=== PATIENT | female | born 1940 | race Caucasian/White ===

== ENCOUNTER 2023-11-22 10:15 | Emergency (ER) | payer MEDICARE, SELFPAY ==
[2023-11-22 10:23] VITALS: BP 116/69
[2023-11-22 10:59] LABS: % Basophils 0.7 % (0-2); % Eosinophils 1.6 % (0-6); % Immature Granulocytes 0.7 % (0-0.5); % Lymphocytes 29.9 % (20.5-51.1); % Monocytes 11.5 % (1.7-9.3); % Neutrophils 55.6 % (42.2-75.2); Absolute Basophils 0.1 10^3/uL (0-0.2); Absolute Eosinophils 0.1 10^3/uL (0-0.7); Absolute Immature Granulocytes 0.1 10^3/uL (0-0.05); Absolute Lymphocytes 2.2 10^3/uL (1.2-3.4); Absolute Monocytes 0.9 10^3/uL (0.1-0.6); Absolute Neutrophils 4.2 10^3/uL (1.4-6.5); Hematocrit 35.7 % (37.0-47.0); Hemoglobin 12.7 g/dL (12.0-16.0); Mean Corp Hgb Conc. 35.6 g/dL (33.0-37.0); Mean Corpuscular Volume 95.5 fL (81.0-99.0); Mean Platelet Volume 8.7 fL (7.4-10.4); Nucleated Red Blood Cells % 0 %; Platelet Count 362 10^3/uL (130-400); Red Blood Cell Count 3.74 10^6/uL (4.20-5.40); Red Cell Dist. Width 12.4 % (11.5-14.5); White Blood Cell Count 7.5 10^3/uL (4.8-10.8)
[2023-11-22 11:07] LABS: ALT (SGPT) 81 U/L (0-35); AST (SGOT) 63 U/L (14-36); Albumin 3.8 g/dl (3.5-5.0); Alkaline Phosphatase 156 U/L (38-126); Blood Urea Nitrogen 4 mg/dl (7-17); Calcium 9.3 mg/dl (8.4-10.2); Carbon Dioxide 28 mmol/L (22-30); Chloride 98 mmol/L (98-107); Glucose 113 mg/dl (70-99); Potassium 4.1 mmol/L (3.5-5.1); Sodium 131 mmol/L (135-145); Total Bilirubin 0.9 mg/dl (0.2-1.3); Total Protein 6.5 g/dl (6.3-8.2); eGFR > 60.00
[2023-11-22 11:18] LABS: Troponin I < 0.012 ng/ml
--- NOTE | 2023-11-22 12:08 | ED.GENMED ---
History of Present Illness
General
Chief Complaint: Breathing Problem
Source: patient
Exam Limitations: none
Time Seen by Provider: 11/22/23 11:14
Travel History
Have you had any contact with someone who has COVID-19?: Yes
Comment: covid+
Do you have any symptoms of coronavirus? Fever > 100 degrees, chills, cough, shortness of breath, sore throat, loss of taste or smell, muscle aches, or headache?: Yes
Symptoms:: covid+
History of Present Illness
History of Present Illness:
83-year-old female recently discharged from hospital for community-acquired pneumonia. Currently on Augmentin. Notes persistent and worsening symptoms since discharge. She was initially tested for COVID upon admission which was negative however
she tested positive yesterday. Onset of COVID was unknown. Patient is on Eliquis. She notes generally she is fatigued and occasionally feels short of breath. She notes a cough was having difficulty producing any sputum with the cough. The
appetite is down. She is also having difficulty swallowing. No chest pain. No abdominal pain.
Past History
Past History
ED Past Medical History: HTN
ED Past Surgical History: Gynecological
Social History
Tobacco: Non-smoker
Alcohol: None
Drug: None
Personal: Single
Employment: Not employed
Phy Exam
Physical Exam
Physical Exam:
General: Well-appearing female no acute respiratory distress
HEENT: Normocephalic atraumatic neck is supple
Heart: Regular rate and rhythm no murmurs
Lungs: Clear to auscultation bilaterally no wheezing
Abdomen: Soft nontender nondistended no guarding or rebound normal bowel
Extremities: No cyanosis or edema
Scores
Heart Failure Risk
Heart Failure Risk Score: Not Applicable
Course
Orders/Labs/Results
Orders:
Orders
11/22/23 10:33
Electrocardiogram (*1) Urgent
Reason for Study: Chest Pain
EKG- Treatment ONCE
11/22/23 10:41
Complete Blood Count/With Diff Urgent
Comprehensive Metabolic Panel Urgent
Troponin I Urgent
11/22/23 11:39
0.9% Sodium Chloride 1000 ml [Nss] 1,000 ml IV BOLUS
CR Chest - 2 Views Urgent
Comment:
Reason For Exam: sob
11/22/23 14:37
Amoxicillin 875 mg/Clav 125 mg [Augmentin 875 mg/125 mg] 1 tablet PO NOW STA
Abnormal Lab Results
11/22/23
10:41
RBC 3.74 L 10^6/uL
(4.20-5.40)
Hct 35.7 L %
(37.0-47.0)
MCH 34.0 H pg
(27.0-31.0)
Abs Immat Gran (auto) 0.1 H 10^3/uL
(0-0.05)
Absolute Monos (auto) 0.9 H 10^3/uL
(0.1-0.6)
Immature Gran % 0.7 H %
(0-0.5)
Monocytes % 11.5 H %
(1.7-9.3)
Sodium 131 L mmol/L
(135-145)
BUN 4 L mg/dl
(7-17)
Creatinine 0.5 L mg/dL
(0.6-1.0)
Glucose 113 H mg/dl
(70-99)
AST 63 H U/L
(14-36)
ALT 81 H U/L
(0-35)
Alkaline Phosphatase 156 H U/L
(38-126)
11/22/23 10:41
11/22/23 10:41
Vital Signs
Initial and Last Documented VS:
Initial Vital Signs
Temp Pulse Resp BP Pulse Ox
98.8 F 104 24 116/69 95
11/22/23 10:23 11/22/23 10:23 11/22/23 10:23 11/22/23 10:23 11/22/23 10:23
Last Documented Vital Signs
Temp Pulse Resp BP Pulse Ox
98.8 F 104 24 116/69 95
11/22/23 10:23 11/22/23 10:23 11/22/23 10:23 11/22/23 10:23 11/22/23 10:23
MDM/Problems Addressed
Differential Diagnosis Includes:
Patient with weakness and cough. Recent positive test for COVID. Patient is on Eliquis and onset of COVID symptoms unknown. Not a great candidate for Paxlovid at this time. She is not hypoxic. Will recheck x-ray labs pending. Hydration ordered
*Critical Care Note
Total Time (30-74mins, 75-104mins- exclusive of procedures): Not Applicable
Update Note
Update Note:
Chest x-ray looks improved clinically. She is not hypoxic no respiratory distress here. Still read as basilar pneumonia. This will not change treatment. Still do not think patient needs to stay. She is now eating and drinking well. She
received a liter of fluid. At this point recommended supportive care at home with continued hydration and fever control if needed. She will finish her course of Augmentin as well
ED Attending Note
-
Portions of this chart may have been created with voice recognition software.� Occasional wrong word or��sound alike� substitutions may have occurred due to the inherent limitations of voice recognition software.
Discharge Plan
Departure
Patient Disposition: Home (Routine Discharge)
Date of Disposition: 11/22/23
Time of Disposition: 15:23
Patient with high blood pressure during this ER visit?: No
Discharge Problem:
COVID-19, Community acquired pneumonia
Prescriptions:
No Action
cyanocobalamin (vitamin B-12) 1,000 mcg Tablet
1,000 mcg PO DAILY
pyridoxine (vitamin B6) 100 mg Tablet
100 mg PO DAILY
losartan-hydrochlorothiazide 50-12.5 mg Tablet
1 tab PO DAILY
cholecalciferol (vitamin D3) 50 mcg (2,000 unit) Tablet
50 mcg PO DAILY
Eliquis 5 mg Tablet
5 mg PO BID
biotin 1,000 mcg Tablet,Chewable
1,000 mcg PO DAILY
benzonatate 100 mg Capsule
200 mg PO HSPRN PRN (Reason: cough) Qty: 14 0RF
amoxicillin-pot clavulanate 875-125 mg tablet
1 tab PO BID Qty: 14 0RF
Patient Comments:
11/22/2023, pt. filled this med. on 11/18/2023 and is instructed to take one tablet BID for 7 days.
Centrum Silver Tablet
1 tab PO DAILY
Visbiome 112.5 billion cell Capsule
1 cap PO DAILY
guaifenesin [Mucinex] 1,200 mg Tablet Extended Release 12hr
1,200 mg PO Q12H
ProAir RespiClick 90 mcg/actuation Aerosol Powdr Breath Activated
2 inh INHALATION R Q6HPRN PRN (Reason: sob/wheezing)
Referrals:
Jamaal Verde MD [Family Provider] -
Activity Restrictions/Additional Instructions:
Finish your course of Augmentin. Stay hydrated. Use ibuprofen or Tylenol for fever. Return if needed.
Interventions
Interventions:
*Risk Screen - Suicide Last Done: 11/22/23 10:27
*General Assessment Last Done: 11/22/23 10:27
*Neglect/Abuse Screening Last Done: 11/22/23 10:27
[2023-11-22 12:09] VITALS: BMI 24.5
[2023-11-22] MEDS: NSS 1000 IV (12:09)
[2023-11-22 13:58] VITALS: BP 134/74
[2023-11-22 14:00] VITALS: BP 103/93
[2023-11-22 15:00] VITALS: BP 121/69
[2023-11-22] MEDS: AUGMENTIN 875 MG/125 MG 1 TABLET PO (15:28)
== END 2023-11-22 16:29 | disposition home or self-care (01) ==
LOC: EMR 10:15
PROVIDERS: EMERGENCY PHYSICIAN Emergency Medicine; FAMILY PHYSICIAN Internal Medicine
DX: J18.9 Pneumonia, unspecified organism (principal); U07.1 COVID-19; I10 Essential (primary) hypertension; Z79.01 Long term (current) use of anticoagulants
CPT/HCPCS: 99284; 96360; 71046; 80053; 84484; 85025; 93005

== ENCOUNTER → 2024-01-25 10:18 | Outpatient (REF) | payer MEDICARE, SELFPAY ==
[2024-01-25 10:53] VITALS: BP 137/95; BP_SYST 51
== END ==
LOC: RADI 10:18
PROVIDERS: ATTENDING PHYSICIAN Student in an Organized Health Care Education/Training Program
DX: E04.1 Nontoxic single thyroid nodule (principal)
CPT/HCPCS: 88173; 10005

== ENCOUNTER → 2024-12-17 13:06 | Outpatient (REF) | payer MEDICARE, SELFPAY | LOC: RAD 13:06 | PROVIDERS: ATTENDING PHYSICIAN Physician Assistant; FAMILY PHYSICIAN Internal Medicine | DX: M54.50 Low back pain, unspecified (principal) | CPT/HCPCS: 72110 ==

== ENCOUNTER 2024-12-23 21:04 | Inpatient (IN) | payer MEDICARE, SELFPAY ==
[2024-12-23 17:52] VITALS: BP 162/72; BMI 23.5
[2024-12-23 18:39] VITALS: BP 125/80
[2024-12-23 19:24] LABS: % Basophils 0.3 % (0-2); % Eosinophils 0.4 % (0-6); % Immature Granulocytes 0.6 % (0-0.5); % Lymphocytes 13.3 % (20.5-51.1); % Monocytes 10.2 % (1.7-9.3); % Neutrophils 75.2 % (42.2-75.2); Absolute Lymphocytes 0.9 10^3/uL (1.2-3.4); Absolute Monocytes 0.7 10^3/uL (0.1-0.6); Absolute Neutrophils 5.3 10^3/uL (1.4-6.5); Hematocrit 15.4 % (37.0-47.0); Hemoglobin 5.1 g/dL (12.0-16.0); Mean Corp Hgb Conc. 33.1 g/dL (33.0-37.0); Mean Corpuscular Hgb 32.5 pg (27.0-31.0); Mean Corpuscular Volume 98.1 fL (81.0-99.0); Mean Platelet Volume 9.6 fL (7.4-10.4); Nucleated Red Blood Cells % 0 %; Platelet Count 234 10^3/uL (130-400); Red Blood Cell Count 1.57 10^6/uL (4.20-5.40); Red Cell Dist. Width 14.1 % (11.5-14.5)
[2024-12-23 19:36] LABS: ALT (SGPT) 28 U/L (0-35); AST (SGOT) 26 U/L (14-36); Albumin 3.7 g/dl (3.5-5.0); Alkaline Phosphatase 85 U/L (38-126); Blood Urea Nitrogen 19 mg/dl (7-17); Calcium 8.7 mg/dl (8.4-10.2); Carbon Dioxide 21 mmol/L (22-30); Chloride 94 mmol/L (98-107); Estimated Creatinine Clearance 70 ml/min; Glucose 116 mg/dl (70-99); Potassium 3.9 mmol/L (3.5-5.1); Sodium 124 mmol/L (135-145); Total Bilirubin 0.5 mg/dl (0.2-1.3); Total Protein 5.6 g/dl (6.3-8.2); eGFR > 60.00
[2024-12-23 19:49] LABS: Troponin I < 0.012 ng/ml
--- NOTE | 2024-12-23 19:51 | ED.GENMED ---
History of Present Illness
General
Chief Complaint: Breathing Problem
Source: patient and family (Daughter)
Exam Limitations: none
Time Seen by Provider: 12/23/24 18:46
Nursing documentation reviewed up to this point in time: agreed with
History of Present Illness
History of Present Illness:
Patient to ED with complaint of fatigue, SOB, weakness. Symptoms started approx 4 days ago. She has been dealing with low back pain over the past month, has appt with pain management on Tuesday. Thought her weakness and SOB were related to her back
issues. Daughter felt tonight her symptoms became much worse so she brought her here. Patient denies fever/chills, n/v/d. No recent illness. No cp/pressure, cough. Reports intermittent nausea. No vomiting or diarrhea. Statess stools have been
black onand off for 1 year. Has not had this evaluated. Last colonoscopy>10yrs, On eliquis for hx afib. Brioght to ED by daughter for eval.
Past History
Past History
ED Past Medical History: Arrthythmia (afib) and HTN
ED Past Surgical History: Gynecological and Orthopedic
Social History
Tobacco: Former smoker
Alcohol: Occasional
Drug: None
Personal: Single
Employment: Not employed
Review of Systems
Review of Systems
Allergies reviewed?: Yes
All Other Systems: ROS reviewed and negative except as documented in HPI and ROS
Constitutional: Reports fatigue
EENT: Reports no symptoms
Respiratory: Reports no symptoms
Cardiac: Reports no symptoms
ABD/GI: Reports nausea and black stools
: Reports no symptoms
Musculoskeletal: Reports back pain (chronic low back pain)
Skin: Reports no symptoms
Neurological: Reports weakness
Psychiatric: Reports no symptoms
Phy Exam
General Physical Exam
General Presentation: mild distress
General age: appears stated age
General Skin: warm and dry
General Habitus: normal
General Mental: alert
Cardiovascular Exam
Cardiovascular Exam: regular rate/rhythm and no edema
Pulmonary Exam
Pulmonary Exam: lungs clear and no respiratory distress
Gastrointestinal Exam
Gastrointestinal Exam: normal bowel sounds, non tender, soft, no organomegaly, no pulsatile mass, non distended and no cva tenderness
Rectal Exam: normal external exam, normal sphincter tone and soft stool
Stool: black
Guaiac Status: positive
Musculoskeletal Exam
Musculoskeletal Exam: full ROM and neuro vasc intact
Skin Exam
Skin Exam: normal color, warm/dry and no rash
Psychiatric Exam
Psychiatric Exam: normal mood/affect
Scores
Heart Failure Risk
Heart Failure Risk Score: Not Applicable
Course
Orders/Labs/Results
Orders:
Orders
12/23/24 Dinner
NPO
Allow oral meds: Yes
Allow clear liquids: Sips of Clears
NPO with Ice Chips: Yes
Comment: Oral fluid restriction 1200 ml / day
12/23/24 17:42
EKG [Electrocardiogram (*1)] Urgent
Reason for Study: Shortness of Breath
12/23/24 17:43
EKG- Treatment ONCE
12/23/24 19:13
Complete Blood Count/With Diff Urgent
Comprehensive Metabolic Panel Urgent
Troponin I Urgent
12/23/24 19:48
* Blood Bank Products Urgent
Blood Bank Products: *Packed RBC Leuko(PRBC's)
Quantity: 2
Transfuse Today: Yes
Reason: Anemia
12/23/24 19:50
0.9% Sodium Chloride 1000 ml [Nss] 1,000 ml IV BOLUS
Pantoprazole [Protonix IV] 40 mg IV NOW STA
12/23/24 20:41
Admit/Transfer Patient As Directed
Co-Sign Provider:
Level of Care: Inpatient admission
Assign to:: Telemetry
Physician / Group: hospitalist
Diagnosis: symptomatic anemia
Reason for Telemetry: Arrhythmia
Date to Stop Telemetry: 12/26/24
Time to Stop Telemetry: 11:00
Reason for Hospitalization: symptomatic anemia, UGIB
Expected length of stay greater than two midnights?: Yes
ELOS- Estimated Length of Stay in days: 2
I certify the patient meets the requirements for IP care: Yes
PRN Pain Medication Management As Directed
May give lesser potent ordered pain med per pt: Yes
preference::
Protocol:: Medication orders for pain may be administered in a
manner that supports deferring to patient preference
when the pt is:
- Requesting an ordered lesser potent pain medication.
Least to most potent pain medications are defined
as: acetaminophen < NSAID < tramadol < opioids
(morphine, oxycodone, hydromorphone).
- Requesting a lesser dose of the same medication IF
ORDERED.
- Requesting a less intrusive route of administration
if both routes are prescribed by the provider (PO <
IV).
12/23/24 20:43
Type And Crossmatch [Type+Screen] Urgent
Code Status As Directed
Resuscitation Status: Full Code
12/23/24 21:52
0.9% Sodium Chloride 1000 ml [Nss] 1,000 ml IV 100 mls/hr
Acetaminophen [Tylenol] 650 mg PO Q6HPRN PRN
Mag Hydrox/Al Hydrox/Simeth [Maalox] 30 ml PO QIDPRN PRN
Ondansetron Injectable [Zofran] 4 mg IV Q6HPRN PRN
Pantoprazole 80 mg/100 ml Nss [Protonix] 80 mg in 100 ml IV Q10H
12/23/24 21:52
GASTROINTESTINAL CONSULT Routine
Consulting Provider: Nella Andrews
Was physician already notified: Yes
Reason for consult: UGIB suspected, hgb 5 on eliquis
Osmolality, Random Urine Routine
Urine Sodium Routine
Activity As Directed
Activity Level: With Assistance
INT (Intravenous Needle Therapy) As Directed
Comment: Place 2 IV catheters of the largest bore possible until stable
Orthostatic Vital Signs As Directed
Orthostatic VS Frequency: Daily
Orthostatic Vital Signs As Directed
Orthostatic VS Frequency: Now
Comment: then every four hours for twenty-four hours
Pneumatic Compression Sleeves As Directed
Type: Knee high
Vital Signs As Directed
Frequency: Per unit guidelines
DX Deep Vein Thrombosis Video Routine
12/24/24 06:00
Basic Metabolic Panel IN AM
H&H Q8H
TSH Reflex To Free T4 IN AM
12/24/24 08:00
Losartan [Cozaar] 100 mg PO DAILY
12/26/24 11:00
DC Protocol for Telemetry ONCE
Abnormal Lab Results
12/23/24 12/23/24
19:13 20:43
RBC 1.57 L 10^6/uL
(4.20-5.40)
Hgb 5.1 L* g/dL
(12.0-16.0)
Hct 15.4 L* %
(37.0-47.0)
MCH 32.5 H pg
(27.0-31.0)
Absolute Lymphs (auto) 0.9 L 10^3/uL
(1.2-3.4)
Absolute Monos (auto) 0.7 H 10^3/uL
(0.1-0.6)
Immature Gran % 0.6 H %
(0-0.5)
Lymphocytes % 13.3 L %
(20.5-51.1)
Monocytes % 10.2 H %
(1.7-9.3)
Sodium 124 L mmol/L
(135-145)
Chloride 94 L mmol/L
(98-107)
Carbon Dioxide 21 L mmol/L
(22-30)
BUN 19 H mg/dl
(7-17)
Creatinine 0.5 L mg/dL
(0.6-1.0)
Glucose 116 H mg/dl
(70-99)
Total Protein 5.6 L g/dl
(6.3-8.2)
Crossmatch IS Only See Detail
12/23/24 19:13
12/23/24 19:13
Vital Signs
Initial and Last Documented VS:
Initial Vital Signs
Temp Pulse Resp BP Pulse Ox
97.8 F 78 18 162/72 100
12/23/24 17:52 12/23/24 17:52 12/23/24 17:52 12/23/24 17:52 12/23/24 17:52
Last Documented Vital Signs
Temp Pulse Resp BP Pulse Ox
97.8 F 87 16 134/65 98
12/23/24 17:52 12/23/24 21:45 12/23/24 21:45 12/23/24 21:00 12/23/24 21:30
*Critical Care Note
Total Time (30-74mins, 75-104mins- exclusive of procedures): Not Applicable
Update Note
Update Note:
Patient to ED with complaint of fatigue weakness SOB. Reports symptoms started 4 days ago. Labs reviewed. Hgb 5.1. Stool is black, heme pos. Given IVF, protoninx. 2uPRBC's ordered for transfusion tonight. SHe denies any abdominal pain.
States she has had black stools off and on for the past year. On ELiquis for history of Afib. Last colonoscopy >10yrs. Will admit to hospitalist service. Patient and daughter are agreeable to plan.
ED Attending Note
-
Portions of this chart may have been created with voice recognition software.� Occasional wrong word or��sound alike� substitutions may have occurred due to the inherent limitations of voice recognition software.
Discharge Plan
Departure
Patient Disposition: Admit
Date of Disposition: 12/23/24
Time of Disposition: 20:03
Presentation/result/management discussed w/ accepting MD/DO: Hospitalist
Patient with high blood pressure during this ER visit?: No
Condition: Fair
Covid-19: Not Applicable
Discharge Problem:
GI bleeding, Anemia
Interventions
Interventions:
*Risk Screen - Suicide Last Done: 12/23/24 17:52
*General Assessment Last Done: 12/23/24 17:52
*Neglect/Abuse Screening Last Done: 12/23/24 21:49
ED- Fall Risk Assessment Last Done: 12/23/24 21:46
*ED COVID-19 Vaccine History Last Done: 12/23/24 17:52
*Nursing Disposition Last Done: 12/23/24 21:49
ED- Cardiac Assessment Last Done: 12/23/24 21:46
ED- Pulmonary Assessment Last Done: 12/23/24 21:46
Discharge Date and Time
Discharge Date/Time: 12/23/24 21:49
[2024-12-23 20:27] VITALS: BP 142/68
--- NOTE | 2024-12-23 20:31 | HPS.HSE ---
Family Physician
-
Family Physician: Jamaal Verde
Chief Complaint
-
Weakness and shortness of breath
History of Present Illness
This is a 84-year-old female with past medical history significant for atrial fibrillation on anticoagulation with Eliquis, hypertension, chronic back pain who presents to the emergency department with rapidly worsening dyspnea on exertion weakness
and lightheadedness over the last 2 days.
Patient reported that symptoms actually began about 2 weeks ago. Prior to onset of intermittent lightheadedness, dyspnea exertion and shortness of breath patient stated that she has some back pain issues that started approximately 3 weeks ago.
Due to that she has been taking combination of Tylenol and Aleve. Around the same time she started taking this medication she noticed that she started having very dark tarry stools. She has had dark starry stools for the last 3 weeks. She denies
seeing any bloody stools. She denies seeing any blood clots. She has abdominal discomfort and nausea but denies any vomiting. She has been taking Tums to relieve her abdominal discomfort.
Patient reports she takes multiple doses of Aleve a day. She denies any prior history of upper GI bleed. She denies any prior history of lower GI bleed. Her last colonoscopy was over 10 years ago. She has never had an upper endoscopy. She
denies any history of any Malignancy.
In the emergency department she was afebrile, hemoglobin was 5.1 which is down from 12.71-year ago. ECG shows a atrial fibrillation at a rate of 83, troponin was normal. Electrolytes notable for a sodium of 124 but is otherwise unremarkable with
normal creatinine. BUN was slightly elevated at 19.
Medical History
Past Medical History
Past Medical History: Reports HTN and Other (afib on eliquis)
Past Surgical History: Reports Gynocological (BRIT/BSO) and Orthopedic (Left total hip arthroplasty)
Social History
Tobacco: Non-smoker
Alcohol: None
Living: With Family
Employment: Retired
Family History
Family History: Not pertinent
Allergies / Home Medications
Allergies reflects when Allergies were last updated in [facility].
Home Medications with original date entered in [facility]
Allergy/Medication List:
Allergies
Allergy/AdvReac Type Severity Reaction Status Date / Time
No Known Allergies Allergy Verified 11/22/23 10:25
Home Medications
apixaban 5 mg tablet (Eliquis) 5 mg PO BID Blood Clot Prevention/Tx 11/08/23
biotin 1,000 mcg chewable tablet 5,000 mcg PO DAILY supplement 11/08/23
cyanocobalamin (vitamin B-12) 1,000 mcg tablet 500 mcg PO DAILY supplement 11/08/23
cholecalciferol (vitamin D3) 25 mcg (1,000 unit) tablet (Vitamin D3) 25 mcg PO DAILY 12/23/24
hydrochlorothiazide 12.5 mg tablet 12.5 mg PO DAILY 12/23/24
losartan 100 mg tablet 100 mg PO DAILY 12/23/24
naproxen sodium 220 mg tablet (Aleve) 220 mg PO DAILYPRN PRN back pains 12/23/24
therapeutic multivitamin 1 tab PO DAILY 12/23/24
Review of Systems
-
History Source: Patient
Constitutional: Reports No Symptoms
EENT: Reports No Symptoms
Respiratory: Reports No Symptoms
Cardiac: Reports No Symptoms
Abdomen/GI: Reports Black Stools
: Reports No Symptoms
Musculoskeletal: Reports No Symptoms
Skin: Reports No Symptoms
Neurological: Reports Dizzy and Weakness
Endocrine: Reports No Symptoms
Hematologic/Lymphatic: Reports No Symptoms
Psych: Reports No Symptoms
Physical Exam
Vital Signs
Vital Signs
Temp Pulse Resp BP Pulse Ox
97.8 F 78 18 162/72 100
12/23/24 17:52 12/23/24 17:52 12/23/24 17:52 12/23/24 17:52 12/23/24 17:52
Physical Exam
General: Well Developed, Well Nourished, No Apparent Distress and Comfortable
HEENT: NormoCephalic, Anicteric, Moist mucous membranes and Atraumatic
Respiratory: Clear
Cardiac: S1/S2 and Irregular Rhythm
Breast: Deferred by me
GI: Soft, Non Tender, Non Distended and Normal Bowel Sounds
Rectal: Black
Genito-urinary: Deferred by me
Musculoskeletal: No Clubbing, No Cyanosis and No Edema
Skin: Warm
Neuro: AO x 3 and Nonfocal/grossly intact
Hematologic/Lymphatic: No Lymphadenopathy
Psych: Calm
Laboratory Results
-
12/23/24 19:13
12/23/24 19:13
Laboratory Results
Total Bilirubin 0.5 mg/dl (0.2-1.3) 12/23/24 19:13
AST 26 U/L (14-36) 12/23/24 19:13
ALT 28 U/L (0-35) 12/23/24 19:13
Alkaline Phosphatase 85 U/L (38-126) 12/23/24 19:13
Troponin I < 0.012 ng/ml 12/23/24 19:13
Data Reviewed
-
Medical Tests (Nuc Med, Echo, EKG etc): Image Personally Visualized and interpreted
Lab Data: Labs Reviewed by me
Old Records: Reviewed
Impression/Plan
-
IMPRESSION:
84-year-old female, on Eliquis for atrial fibrillation presents to the emergency department with fatigue, dyspnea on exertion, shortness of breath and weakness over the last few days in the setting of approximately 3 weeks of dark tarry stools which
also occurred in the setting of increased NSAID use. Black heme positive stool on rectal examination here. Hemoglobin 5.1. Suspect upper GI bleed secondary to possible bleeding ulcer versus multifactorial in the setting of anticoagulation and
NSAID use.
PLAN:
1. Symptomatic anemia with likely UGIB
- admit to telemetry
- typed and cross and getting transfused 2 units now
- holding eliquis, last dose 9 am, no reversal as no active bleeding noted
- ppi iv gtt
- H& H q 8, transfuse for Hgb goal > 7
- check iron panel, b12, folate and tsh
- NPO for now excepts sips and ice chips
- no nsaids/thinners
- HD stable supine but may be orthostatic, will check in am
2. Hyponatremia. Na 124. Underlying hyponatremia with prior na 131. Now with blood loss and HCTZ + nsaid use.
- hold hctz, nsaids
- restrict fluid to 1200 ml daily
- IV NS for now
- check urine osm, na
3. AFIB
- holding eliquis, restart pending GI
- patient not on any rate control, monitor on telemetry
DVT PPX - SCD
Code status - Full Code
[2024-12-23] MEDS: NSS 1000 IV ×2 (20:33→23:00)
[2024-12-23] MEDS: PROTONIX IV 40 MG IV (20:39)
[2024-12-23 21:00] VITALS: BP 134/65
[2024-12-23 22:34] VITALS: BP 143/67; BMI 27.0
[2024-12-23] MEDS: TYLENOL 650 MG PO (22:39)
[2024-12-23 22:53] VITALS: BMI 27.0
[2024-12-23] MEDS: PROTONIX 100 IV (23:00)
--- NOTE | 2024-12-23 23:00 | PTCARENOTE ---
Pt arrived to [facility] from ED, complaining of 7/10 lumbar spine pain. AAOx3, VSS. Pt oriented to room, call kahn in reach. Bed alarm in place d/t dizziness. Unable to complete orthostatic vitals d/t back pain and dizziness. Plan of care reviewed
with pt and daughter at bedside.
[2024-12-23 23:55] VITALS: BP 151/62
[2024-12-24] VITALS (13 sets, daily range): BP systolic 133–185; BP diastolic 62–93; PULSE 77–125
[2024-12-24 03:28] LABS: Osmolality Urine 276 mOsm/kg (300-900)
[2024-12-24 03:54] LABS: Urine Sodium 9 mmol/L (30-90)
[2024-12-24] MEDS: TYLENOL 650 MG PO (04:48)
--- NOTE | 2024-12-24 06:30 | PTCARENOTE ---
Pt reports increased sob and wheezing s/p 2 units PRBC's, with IV NS at 100 mL/hr and protonix gtt at 8mg, 10 mL/hr running concurrently. Pt reports that she presented to the ED with sob and wheezing but that these symptoms have increased this AM.
Pt denies chest pain or lightheadedness at this time, AAOx3. 95% on room air. Pt placed on 2L NC and O2 now at 97%. MADINA Tavera notified and 1x IV Lasix 20mg provided to pt. Pt requesting purewick d/t increased back pain and shortness of breath,
stating 'I don't think I can turn to use the bedpan this morning'. Pt educated on the risks of UTI with purewick, pt still requesting purewick. Purewick placed by this keno writer at 0630.
[2024-12-24] MEDS: LASIX 20 MG IV (06:33)
--- NOTE | 2024-12-24 06:38 | W.PN.UPDATE ---
Update Note
Progress Note Update
Wheezing and c/o SOB and unable to take a deep breath. Lasix 20 mg IV x1. (UGIB given 2 units PRBCS with diuretic on hold so assuming mild fluid overload). She c/o sob worsening since admission.
[2024-12-24 08:57] LABS: Hematocrit 22.8 % (37.0-47.0); Hemoglobin 7.7 g/dL (12.0-16.0)
[2024-12-24] MEDS: COZAAR 100 MG PO (09:09)
[2024-12-24] MEDS: PROTONIX 100 IV ×2 (09:10→18:08)
[2024-12-24] MEDS: FLUSH (NSS) 1 FLUSH IV (09:11)
[2024-12-24 09:19] LABS: Blood Urea Nitrogen 13 mg/dl (7-17); Calcium 8.6 mg/dl (8.4-10.2); Carbon Dioxide 20 mmol/L (22-30); Chloride 97 mmol/L (98-107); Estimated Creatinine Clearance 70 ml/min; Glucose 107 mg/dl (70-99); Potassium 3.8 mmol/L (3.5-5.1); Sodium 127 mmol/L (135-145); eGFR > 60.00
--- NOTE | 2024-12-24 09:32 | CON.GI ---
Addendum entered and electronically signed by Nella Andrews MD 12/24/24 17:08:
I saw and examined the patient.
The biomedical service engineer note was reviewed and I agree with the note.
--Acute anemia/dark stool/history of A-fib on Eliquis/NSAIDs use -likely upper GI bleeding secondary to peptic ulcer disease versus gastritis. Received 2 units PRBC this admission. No prior EGD
-- A-fib on Eliquis-last dose yesterday morning
plan
Clear liquid diet
Continue PPI drip
monitor H&H
Hold Eliquis
N.p.o. after midnight. EGD tomorrow. ( Will check electrolytes in the morning. Patient's initial labs showed hyponatremia 124 but repeat labs this a.m. show improvement to 127 )
Original Note:
Consultation
-
Date/Time Consultation Requested: 12/23/24 21:52
Date/Time Consultation Performed: 12/24/2024 09.05
Requesting Provider: Gracie Ghotra MD
Performing Provider: Padmini Eric MD
Reason for Consultation: Melena
Medical History
Chief Complaint / HPI
Chief Complaint: Feling weakness and dizzy
History of Present Illness:
Patient is a 85-year-old female with a past medical history of A-fib (on Eliquis), chronic back pain, osteoarthritis and osteoporosis complicated with three vertebral fractures. The patient reports that she had a severe back pain about 3 weeks ago
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 Following, she started to take Aleve and Tylenol in return every 4 hours since then until yesterday. The patient reported gradually weakness and especially got worsen in the last few days. She denied any
episode of GI bleeding in the past, hematemesis, dysphagia, odynophagia, GERD, chest pain, abdominal pain. She endorsed having heartburn once or twice in a month for the last 20 years for which she was taking Tums and reports it was not a big
problem for her. She reported passing dark-colored/brown stools since last 3 months which was intermittent at the beginning, but it became more frequent for last 2 months. The patient denies hemorrhoids, flesh-colored blood in stool, rectal pain
and reports her bowel movements 1-2 times daily. Per patient report, her last colonoscopy was done about 10 years ago and it was not significant. She she did not undergo an EGD. Her last dose of Eliquis taking was yesterday morning around 10 am.
Past Medical History
Past Medical History: Arrhythmias (Atrial fibrillation-on Eliquis 5 mg twice daily), HTN and Other (Osteoporosis complicated with vertebral fracture, osteoarthritis)
Past Surgical History: Gynecological (BRIT/BSO) and Orthopedic (Left total hip arthroplasty)
Social History
Tobacco: Non-Smoker
Alcohol: Daily (1-2 glass of wine every night)
Drug: None
Living: With Family
Employment: Retired
Family History
Family History: Reviewed & Not Pertinent
Allergies / Home Medications
Allergy/AdvReac Type Severity Reaction Status Date / Time
No Known Allergies Allergy Verified 11/22/23 10:25
�Medication �Instructions �Recorded
apixaban 5 mg tablet (Eliquis) 5 mg PO BID Blood Clot 11/08/23
Prevention/Tx
biotin 1,000 mcg chewable tablet 5,000 mcg PO DAILY supplement 11/08/23
cyanocobalamin (vitamin B-12) 500 mcg PO DAILY supplement 11/08/23
1,000 mcg tablet
cholecalciferol (vitamin D3) 25 25 mcg PO DAILY Supplement 12/23/24
mcg (1,000 unit) tablet (Vitamin
D3)
hydrochlorothiazide 12.5 mg tablet 12.5 mg PO DAILY Fluid 12/23/24
Retention/Swelling
losartan 100 mg tablet 100 mg PO DAILY Blood Pressure 12/23/24
naproxen sodium 220 mg tablet 220 mg PO DAILYPRN PRN back pains 12/23/24
(Aleve)
therapeutic multivitamin 1 tab PO DAILY Supplement 12/23/24
Review of Systems
-
History Source: Patient
Constitutional: Reports No Symptoms
EENT: Reports No Symptoms
Respiratory: Reports Other (States shortness of breath-reports improved after RBC transfusion)
Cardiac: Reports No Symptoms
Abdomen/GI: Reports No Symptoms
: Reports No Symptoms
Musculoskeletal: Reports No Symptoms
Skin: Reports No Symptoms
Neurological: Reports No Symptoms
Vital Signs
Temp Pulse Resp BP Pulse Ox
98.5 F 77 20 180/85 99
12/24/24 07:36 12/24/24 07:36 12/24/24 07:36 12/24/24 07:36 12/24/24 07:36
Physical Exam
Exam
General: Well Developed, Well Nourished, No Apparent Distress and Poor Appetite
HEENT: Normocephalic and Anicteric
Respiratory: Clear
Cardiac: S1/S2 and Irregular Rhythm
GI: Soft, Non Tender, Non Distended and Normal Bowel Sounds
Rectal: Black
Musculoskeletal: No Clubbing, No Cyanosis and No Edema
Skin: Warm
Neuro: Awake, Alert, Oriented and Nonfocal/Grossly Intact
Psych: Calm
Results
WBC 7.0 10^3/uL (4.8-10.8) 12/23/24 19:13
Hgb 7.7 g/dL (12.0-16.0) L D 12/24/24 07:42
Hct 22.8 % (37.0-47.0) L 12/24/24 07:42
MCV 98.1 fL (81.0-99.0) 12/23/24 19:13
Plt Count 234 10^3/uL (130-400) 12/23/24 19:13
Absolute Neuts (auto) 5.3 10^3/uL (1.4-6.5) 12/23/24 19:13
Sodium 127 mmol/L (135-145) L 12/24/24 07:42
Potassium 3.8 mmol/L (3.5-5.1) 12/24/24 07:42
Chloride 97 mmol/L (98-107) L 12/24/24 07:42
Carbon Dioxide 20 mmol/L (22-30) L 12/24/24 07:42
BUN 13 mg/dl (7-17) 12/24/24 07:42
Creatinine 0.5 mg/dL (0.6-1.0) L 12/24/24 07:42
Calcium 8.6 mg/dl (8.4-10.2) 12/24/24 07:42
Total Bilirubin 0.5 mg/dl (0.2-1.3) 12/23/24 19:13
AST 26 U/L (14-36) 12/23/24 19:13
ALT 28 U/L (0-35) 12/23/24 19:13
Alkaline Phosphatase 85 U/L (38-126) 12/23/24 19:13
Diagnostic Image Results:
Prior GI Procedures:
EGD: No known endoscopy
Colonoscopy: Per patient report, last colonoscopy was over 10 years ago with unremarkable results (small polyp biopsy-benign)
Assessment / Plan
-
Assessment
Ms. Banks is a 84 years old female with past medical history of A-fib, HTN, osteoporosis, osteoarthritis and chronic back pain who presented to ER on 12/23/2024 due to feeling weak and dizzy. The patient started to take Aleve a few times in a day
about 3 weeks ago to help her back pain. She denies any vomiting or hematemesis, but endorses having melena about for the last 3 months. She denies other associated symptoms. She never underwent an endoscopy and her last colonoscopy was 10 years
ago with unremarkable findings. At admission, her hemoglobin level was found decreased to 5.1 and BUN was found slightly increased to 19 and Hemoccult test was found positive. The patient was given 2 units of RBC on 12/24/24 am and follow-up
hemoglobin level was found elevated to 7.7. Her lab results also was significant for 124 Na levels which improved to 127 this a.m. The patient has been on Eliquis 5 mg BID for her arrhythmia with the last dose on yesterday morning.
Problem list
Acute anemia possibly secondary upper GI bleeding due NSAID
Hyponatremia
Atrial fibrillation
Hypertension
Osteoarthritis
Chronic back pain
Osteoporosis complicated with vertebral fractures
Plan
Acute anemia possibly secondary to upper GI bleeding due PUD vs AVMs vs malignancy
-Admission Hgb 5.1 which improved to 7. 7 following 2 units of RBC
-Trends Hgb Q 12 H
-Keep hemoglobin level> 7
-Continue PPI IV drip
-Keep to Hold Eliquis (last dose was on 01/02/2025 at 10 am)
-Avoid NSAID
-Endoscopy can be considered for tomorrow after Eliquis washout period
-Colonoscopy can be considered after the findings with endoscopy
-
-
Thank you for consultation and allowing me to participate in the patient's care. Please call the propulsion machinery service engineer GI physician during the after hours with any questions or concerns.
[2024-12-24 09:45] LABS: TSH Reflex To Free T4 1.58 uIU/ml (0.47-4.68)
[2024-12-24] MEDS: NSS IV (13:24)
[2024-12-24] MEDS: ULTRAM 50 MG PO ×2 (13:33→21:44)
--- NOTE | 2024-12-24 16:47 | W.PN.HOSP.TC ---
Today's Communication/Plan
-
see note
for EGD tomorrow
Assessment / Plan
Assessment / Plan
1. Symptomatic anemia with likely UGIB
- typed and cross and getting transfused 2 units now
- holding eliquis, 48 hours up tomorrow morning
- ppi iv gtt
- H& H q 8, transfuse for Hgb goal > 7
- GI evaluated and patient plan to get EGD tomorrow
2. Hyponatremia.
-Na 124.
-hold hctz
-ADH excess with bleed issue, urine sodium 9
-Slowly improving and 127
3. Parox afib
- holding eliquis, restart pending GI
- patient not on any rate control, monitor on telemetry
4. Essential hypertension -uncontrolled
-Resume back on losartan
-As needed hydralazine ordered
5. History of vertebral compression fracture
History of osteoporosis
-Added as needed tramadol
-Patient was supposed to follow-up with pain specialist today
DVT PPX - SCD
Code status - Full Code
Total time spent 53-minute
Anticipated Discharge: 24 - 48 hours
Subjective/Interval History
-
Date of Service: December 24, 2024
Denies of any hematemesis/melena
no other issues
Objective Data
-
Labs:
Laboratory Results
12/24/24 12/24/24
06:00 07:42
Hgb Cancelled 7.7 L D
Hct Cancelled 22.8 L
Sodium 127 L
Potassium 3.8
Chloride 97 L
Carbon Dioxide 20 L
BUN 13
Creatinine 0.5 L
Glucose 107 H
Calcium 8.6
Vital Signs:
Vital Signs
Temp Pulse Resp BP Pulse Ox
98.2 F 75 20 151/62 96
12/24/24 15:17 12/24/24 15:17 12/24/24 15:17 12/24/24 15:17 12/24/24 15:17
I&O
12/23/24 12/24/24 12/25/24
06:59 06:59 06:59
Intake Total 500 / 500 100 / 100
Balance 500 / 500 100 / 100
Review of Systems
-
Respiratory: Reports No Symptoms
Cardiac: Reports No Symptoms
Abdomen/GI: Reports No Symptoms
Physical Exam
-
General: No Apparent Distress
HEENT: Negative Oxygen
Respiratory: Clear to Auscultation
Cardiac: Regular Rhythm and S1/S2; Negative Murmur
GI: Soft, Nontender and Nondistended
Musculoskeletal: No Edema
Skin: Warm; Negative Rash
Neuro: AO x 3
Psych: Calm
[2024-12-25 02:56] VITALS: BP 160/72
[2024-12-25] MEDS: PROTONIX 100 IV (04:06)
[2024-12-25 07:52] VITALS: BP 137/79
[2024-12-25] MEDS: COZAAR 100 MG PO (07:54)
[2024-12-25 08:05] LABS: Hematocrit 22.3 % (37.0-47.0); Hemoglobin 7.3 g/dL (12.0-16.0); Mean Corp Hgb Conc. 32.7 g/dL (33.0-37.0); Mean Corpuscular Hgb 31.6 pg (27.0-31.0); Mean Corpuscular Volume 96.5 fL (81.0-99.0); Mean Platelet Volume 9.6 fL (7.4-10.4); Platelet Count 247 10^3/uL (130-400); Red Blood Cell Count 2.31 10^6/uL (4.20-5.40); White Blood Cell Count 6.8 10^3/uL (4.8-10.8)
[2024-12-25 08:39] LABS: Blood Urea Nitrogen 9 mg/dl (7-17); Calcium 8.8 mg/dl (8.4-10.2); Carbon Dioxide 26 mmol/L (22-30); Chloride 103 mmol/L (98-107); Estimated Creatinine Clearance 70 ml/min; Glucose 99 mg/dl (70-99); Potassium 3.8 mmol/L (3.5-5.1); Sodium 135 mmol/L (135-145); eGFR > 60.00
--- NOTE | 2024-12-25 08:55 | W.PN.HOSP.TC ---
Addendum entered and electronically signed by Wily Pacheco MD 12/26/24 10:35:
GI bleed is multifactorial from NSAID and eliquis use
Original Note:
Today's Communication/Plan
-
d/c home
Assessment / Plan
Assessment / Plan
1. Symptomatic anemia
PUD
- typed and cross and getting transfused 2 units now
- eliquis on hold, resuming ok from 3 morning
- EGD showing pyloric non bleeding ulcer
- Clerared by GI to be discharged on BID PPI
2. Hyponatremia -resolved
-Na 135. was 124 at admit.
-hold hctz
-ADH excess with bleed issue, urine sodium 9
3. Parox afib
- resume back eliquis at discharge
- patient not on any rate control, monitor on telemetry
4. Essential hypertension -uncontrolled
-Resumed back on losartan
-As needed hydralazine ordered
5. History of vertebral compression fracture
History of osteoporosis
-Added as needed tramadol
-Patient was supposed to follow-up with pain specialist today
DVT PPX - SCD
Code status - Full Code
More than 30 minutes spent in discharge including
Final examination of the patient
Summarizing hospital stay
Instructions for continuing care to all relevant caregivers
Preparation of discharge records, prescriptions, and referral forms
Total time spent (in minutes): 38 mins
Anticipated Discharge: Today
Subjective/Interval History
-
Date of Service: December 25, 2024
no reported problems overnight
back pain is better
Objective Data
-
Labs:
Laboratory Results
12/25/24
07:16
WBC 6.8
Hgb 7.3 L
Hct 22.3 L
Plt Count 247
Sodium 135 D
Potassium 3.8
Chloride 103
Carbon Dioxide 26
BUN 9
Creatinine 0.5 L
Glucose 99
Calcium 8.8
Vital Signs:
Vital Signs
Temp Pulse Resp BP Pulse Ox
98.4 F 67 18 137/79 96
12/25/24 07:52 12/25/24 07:52 12/25/24 07:52 12/25/24 07:52 12/25/24 07:52
I&O
12/24/24 12/25/24 12/26/24
06:59 06:59 06:59
Intake Total 1779 / 1779 1520 / 1520
Output Total 0 / 360
Balance 1779 -2079 / -2079
Review of Systems
-
Respiratory: Reports No Symptoms
Cardiac: Reports No Symptoms
Abdomen/GI: Reports No Symptoms
Physical Exam
-
General: No Apparent Distress
HEENT: Negative Oxygen
Respiratory: Clear to Auscultation
Cardiac: Regular Rhythm and S1/S2; Negative Murmur
GI: Soft, Nontender and Nondistended
Musculoskeletal: No Edema
Skin: Warm; Negative Rash
Neuro: AO x 3
Psych: Calm
--- NOTE | 2024-12-25 09:34 | PN.CDI ---
CDI
- -
CDI:
Physician Documentation Request
Admit Date: 12/23/24 21:04
Dear Doctor Junior,
Please review the following and provide your response in the progress notes.
Clinical Indicators:
PN, 12/24
#...Symptomatic anemia with likely UGIB
#...- holding eliquis, 48 hours up tomorrow morning
GI consult, 12/24
#--Acute anemia/dark stool/history of A-fib on Eliquis/NSAIDs use
#...-likely upper GI bleeding secondary to peptic ulcer disease versus gastritis.
#...-- A-fib on Eliquis-last dose yesterday morning
#...Acute anemia possibly secondary upper GI bleeding due NSAID
#...-Keep to Hold Eliquis (last dose was on 01/02/2025 at 10 am)
#...-Avoid NSAID
Based on the above and your clinical assessment, please clarify the relationship, if any, between these conditions, GI bleed and (meds/please specify):
Multifactorial,GI bleed is enhanced by/associated with/due to Eliquis and NSAIDS.
GI bleed is enhanced by Eliquis, only
GI bleed is enhanced by NSAIDS, only
GI bleed is not enhanced by/associated with/due to Eliquis/NSAIDS but it is due to (Please specify)
Other (please specify)
Use of terms such as suspected, likely, concern for, or probable (associated with a specific diagnosis that is being evaluated, monitored, or treated as if it exists) are acceptable and can be coded in the inpatient setting, when documented at the
time of discharge.
Thank you,
Lesa Gamez RN BSN CCDS
CDI Specialist
please contact via tiger text
Please use your independent medical judgment in providing your response.
[2024-12-25 11:45] VITALS: BP 140/71
--- NOTE | 2024-12-25 13:04 | CM ---
Addendum entered by Hanh Briscoe 12/25/24 15:31:
CM noted dc order
VN recs
Call with pt to discuss provider choice
Referral made to [facility] via [facility]
Dtr bedside for transport home
Discharge Disposition- home with [facility] VN, dtr transport
Fax- [phone]
Original Note:
CM met with pt bedside
Pt resides alone in a [place] community, she 1st floor up and electric lift from garage to first floor
Independent with her ADLs with use of a rollator, has a shower chair, drives+
Denies financial insecurities
Dtr is POA
PCP- Jamaal Verde
Rx- [facility]
PT eval requested as pt a nursing assist in room
Discharge Disposition- home, watch for VN needs, dtr will transport home
--- NOTE | 2024-12-25 13:51 | W.PN.UPDATE ---
Addendum entered and electronically signed by Trvais Diaz MD 12/26/24 10:18:
Diagnosis is acute gastric ulcer with hemorrhage
Original Note:
Update Note
Progress Note Update
EGD done
1cm pyloric ulcer, clean based. Bx'd edge
Schatzki's ring
Gastric body polyps bx'd
REC:
Resume cardiac diet
Change protonix gtt to BID
F/U Hgb
Await path
Avoid NSAIDs
[2024-12-25 15:14] VITALS: O2SAT 98
[2024-12-25 15:24] VITALS: BP 165/82
--- NOTE | 2024-12-26 08:41 | PN.CDI ---
CDI
- -
CDI:
Physician Documentation Request
Admit Date: 12/23/24 21:04
Dear Doctor Joe,
Please review the following and provide your response in the progress notes.
Clinical Indicators:
EGD, 12/25
#...Gastric ulcer, unspecified as acute or chronic,
#...without hemorrhage or perforation
Based on the above and your clinical assessment, please clarify the acuity of the gastric ulcer:
Acute gastric ulcer with hemorrhage
Acute gastric ulcer without hemorrhage
Acute on Chronic gastric ulcer with hemorrhage
Acute on Chronic gastric ulcer without hemorrhage
Chronic gastric ulcer with hemorrhage
Chronic gastric ulcer without hemorrhage
Other(please specify)
Use of terms such as suspected, likely, concern for, or probable (associated with a specific diagnosis that is being evaluated, monitored, or treated as if it exists) are acceptable and can be coded in the inpatient setting, when documented at the
time of discharge.
Thank you,
Lesa Gamez RN BSN CCDS
CDI Specialist
please contact via tiger text
Please use your independent medical judgment in providing your response.
== END 2024-12-25 16:58 | disposition home health service (06) | DRG 378 ==
LOC: 4 WEST ACU 21:04
PROVIDERS: Emergency Medicine; Specialist; ADMITTING PHYSICIAN Internal Medicine; ATTENDING PHYSICIAN Hospitalist; CONSULT PHYSICIAN Internal Medicine Gastroenterology; EMERGENCY PHYSICIAN Student in an Organized Health Care Education/Training Program; FAMILY PHYSICIAN Internal Medicine
PROC: 30233N1 Transfusion of Nonautologous Red Blood Cells into Peripheral Vein, Percutaneous Approach (ICD-10-PCS; 2024-12-23)
PROC: 0DB68ZX Excision of Stomach, Via Natural or Artificial Opening Endoscopic, Diagnostic (ICD-10-PCS; 2024-12-25)
PROC: 0DB78ZX Excision of Stomach, Pylorus, Via Natural or Artificial Opening Endoscopic, Diagnostic (ICD-10-PCS; 2024-12-25)
DX: K25.0 Acute gastric ulcer with hemorrhage (principal); D68.32 Hemorrhagic disorder due to extrinsic circulating anticoagulants; E87.1 Hypo-osmolality and hyponatremia; R06.02 Shortness of breath; M54.50 Low back pain, unspecified; I48.91 Unspecified atrial fibrillation; I10 Essential (primary) hypertension; G89.29 Other chronic pain; K22.2 Esophageal obstruction; K31.7 Polyp of stomach and duodenum; M81.0 Age-related osteoporosis without current pathological fracture; M47.9 Spondylosis, unspecified; D64.9 Anemia, unspecified; Z60.2 Problems related to living alone; Z96.642 Presence of left artificial hip joint; Z87.891 Personal history of nicotine dependence; Z79.01 Long term (current) use of anticoagulants
CPT/HCPCS: 88305; 80048; 80053; 83935; 84300; 84443; 84484; 85014; 85018; 85025; 85027; 86850; 86900; 86901; 86920; 88342; 93005; 96361; 96374; 97162; 99285; P9016

== ENCOUNTER 2025-04-23 11:10 | Emergency (ER) | payer MEDICARE, SELFPAY ==
[2025-04-23 11:27] VITALS: BP 168/84
[2025-04-23 12:19] LABS: Hematocrit 33.5 % (37.0-47.0); Hemoglobin 10.9 g/dL (12.0-16.0); Mean Corp Hgb Conc. 32.5 g/dL (33.0-37.0); Mean Corpuscular Volume 90.1 fL (81.0-99.0); Nucleated Red Blood Cells % 0 %; Platelet Count 199 10^3/uL (130-400); Red Cell Dist. Width 17.1 % (11.5-14.5)
[2025-04-23 12:40] VITALS: BP 161/72
[2025-04-23 12:43] LABS: Troponin I < 0.012 ng/ml
[2025-04-23 12:48] LABS: ALT (SGPT) 23 U/L (0-35); AST (SGOT) 26 U/L (14-36); Albumin 4.6 g/dl (3.5-5.0); Alkaline Phosphatase 72 U/L (38-126); Blood Urea Nitrogen 13 mg/dl (7-17); Calcium 9.2 mg/dl (8.4-10.2); Carbon Dioxide 24 mmol/L (22-30); Chloride 107 mmol/L (98-107); Glucose 98 mg/dl (70-99); Potassium 4.8 mmol/L (3.5-5.1); Sodium 138 mmol/L (135-145); Total Protein 6.9 g/dl (6.3-8.2); eGFR > 60.00
[2025-04-23 12:51] VITALS: BMI 25.0
[2025-04-23 13:16] VITALS: BP 159/79
--- NOTE | 2025-04-23 13:45 | ED.GENMED ---
History of Present Illness
General
Chief Complaint: Dizziness
Source: patient
Time Seen by Provider: 04/23/25 13:33
History of Present Illness
History of Present Illness:
The patient noted that her headaches, which have been persistent since she fell in 2019, are now more frequent. She states, �everything I fell in 2019,� indicating a potential connection between the fall and her symptoms. The dizziness she
experiences is described as mild spinning and is provoked with head movement or changes in position, though she indicates it is not vertigo. The dizziness is described as, �now its just a mild spinning like this,� necessitating caution with head or
position changes.
She also mentions having a cervical compression fracture, which she suggests might be contributing to her symptoms. The patient has been taking Tylenol regularly to manage her symptoms, avoiding non-steroidal anti-inflammatory drugs due to a history
of peptic ulcers.
The patient reports being NPO since midnight for potential laboratory tests, mentioning thirst due to this. Despite a decrease in appetite and some nausea, she is able to eat and keep food down without vomiting; �but I do eat because I know it
helps.� She denies any gastrointestinal issues, such as diarrhea or constipation, and urinary symptoms, but notes an increased frequency of urination at night.
There have been recent medication adjustments: she was previously on Losartan combined with another antihypertensive, which was discontinued after a finding of low sodium levels. Her insurance policy issue clerk subsequently replaced this with Amlodipine, which she
states caused depression and gastrointestinal problems. She is now off that medication. Her current medications include Losartan, Tylenol, and Apixaban (Eliquis) 5 mg twice daily. She reports a history of atrial fibrillation managed with rate
control.
She denies fever, chills, cough, or any other flu-like symptoms.
Past History
Past History
ED Past Medical History: Arrthythmia (afib) and HTN
ED Past Surgical History: Gynecological and Orthopedic
Social History
Tobacco: Former smoker
Alcohol: Occasional
Drug: None
Personal: Single
Employment: Not employed
Phy Exam
Physical Exam
Physical Exam:
General: Awake, Alert, Oriented X3. No acute distress.
Vitals: unremarkable
Head: Atraumatic
Eyes: Pupils equal, EOMI
Throat: Airway intact, no exudates
Neck: Trachea midline
Lungs: Clear and equal b/l
Heart: irregular rate, no murmurs
Abd: Soft, Nontender, No pulsatile mass
Neuro: Cranial nerves intact, muscle strength equal bilaterally, cerebellar exam normal, no significant nystagmus with head movement. Subjectively mild dizziness with head turning
Skin: Warm, dry, no rash
Extremities: pulses equal b/l, no edema
Course
Orders/Labs/Results
Orders:
Orders
04/23/25 11:11
Electrocardiogram (*1) Urgent
Reason for Study: Vertigo / Dizzy
EKG- Treatment ONCE
04/23/25 11:38
Complete Blood Count/With Diff Urgent
Comprehensive Metabolic Panel Urgent
TSH Reflex To Free T4 Urgent
Troponin I Urgent
04/23/25 13:44
CT Head W/o Iv Contrast Urgent
Comment:
Reason For Exam: headache, dizziness
Meclizine [Antivert] 25 mg PO NOW STA
Abnormal Lab Results
04/23/25
11:38
RBC 3.72 L 10^6/uL
(4.20-5.40)
Hgb 10.9 L g/dL
(12.0-16.0)
Hct 33.5 L %
(37.0-47.0)
MCHC 32.5 L g/dL
(33.0-37.0)
RDW 17.1 H %
(11.5-14.5)
MPV 10.5 H fL
(7.4-10.4)
04/23/25 11:38
04/23/25 11:38
Vital Signs
Initial and Last Documented VS:
Initial Vital Signs
Temp Pulse Resp BP Pulse Ox
97.6 F 75 18 168/84 97
04/23/25 11:27 04/23/25 11:27 04/23/25 11:27 04/23/25 11:27 04/23/25 11:27
Last Documented Vital Signs
Temp Pulse Resp BP Pulse Ox
97.6 F 60 17 168/65 98
04/23/25 11:27 04/23/25 15:03 04/23/25 15:03 04/23/25 15:03 04/23/25 14:00
MDM/Problems Addressed
Differential Diagnosis Includes:
Labyrinthitis, benign positional vertigo, dehydration, anemia
MDM/Problems Addressed:
Patient presents with dizziness that seems to occur with head movement and sitting up. Labs here show no acute abnormalities. CT of the head demonstrated a multiloculated cystic lesion within the periventricular region of the right parietal
occipital lobe measuring 4 x 3 x 3 cm. Lesion is likely chronic given lack of acute mass effect.
Patient notified of the lesion. I do not believe this is likely to have anything do with her acute presentation. I did send a message to Dr. Sony Verde her primary care provider so he is aware and can follow-up on this abnormality.
*Radiology
Radiology exam reviewed: radiology read reviewed
*Pulse Oximetry
SaO2: 99
Oxygen Mode of Delivery: Room air
Patient hypoxic: no
*EKG
Heart Rate: 71
Rate: normal
Rhythm: a-fib
Ursa: normal axis
Interval: normal interval
QRS Pattern: normal QRS
Ischemia: non-specific ST changes
*Fast Food Cashier Interpretation
Rate: normal
Interpretation: abnormal
Rhythm: a-fib
*Critical Care Note
Total Time (30-74mins, 75-104mins- exclusive of procedures): Not Applicable
ED Attending Note
-
Portions of this chart may have been created with voice recognition software.� Occasional wrong word or��sound alike� substitutions may have occurred due to the inherent limitations of voice recognition software.
Discharge Plan
Departure
Patient Disposition: Home (Routine Discharge)
Date of Disposition: 04/23/25
Time of Disposition: 14:53
Patient with high blood pressure during this ER visit?: Yes
Condition: Good
Discharge Problem:
Vertigo, Hypertension, Brain lesion
Instructions: Vertigo (a Type of Dizziness) (DC), BLOOD PRESSURE
Prescriptions:
No Action
cyanocobalamin (vitamin B-12) 1,000 mcg Tablet
500 mcg PO DAILY
Eliquis 5 mg Tablet
5 mg PO BID
biotin 1,000 mcg Tablet,Chewable
5,000 mcg PO DAILY
therapeutic multivitamin Tablet
1 tab PO DAILY
losartan 100 mg Tablet
100 mg PO DAILY
cholecalciferol (vitamin D3) [Vitamin D3] 25 mcg (1,000 unit) Tablet
25 mcg PO DAILY
tramadol 50 mg Tablet
50 mg PO Q6HPRN PRN (Reason: sev pain) Qty: 14 0RF
pantoprazole 40 mg Tablet,Delayed Release (Dr/Ec)
40 mg PO BID Qty: 60 1RF
Referrals:
Jamaal Verde MD [Family Provider, Internal Medicine]
Activity Restrictions/Additional Instructions:
The blood work here shows mild anemia but much better than the most recent measurements here at [place]. Your electrolytes, kidney function and liver function are all normal. Your thyroid level is normal. The CAT scan of your brain did show a
lesion which the radiologist feels has likely been there for some time. He recommends an MRI as an outpatient to further evaluate this. I have sent a message to Dr. Verde but please call his office tomorrow to arrange follow-up. Return for any
concerns. I have also given you a prescription for vestibular therapy as I feel most your symptoms that brought you here today are related to your inner ear. You can take meclizine 25 mg every 8 hours as needed. You can get this [id number].
Interventions
Interventions:
*Risk Screen - Suicide Last Done: 04/23/25 11:27
*General Assessment Last Done: 04/23/25 11:27
*Neglect/Abuse Screening Last Done: 04/23/25 11:27
*ED- Fall Risk Assessment Last Done: 04/23/25 12:52
*ED COVID-19 Vaccine History Last Done: 04/23/25 12:52
*Nursing Disposition Last Done: 04/23/25 15:08
ED- Neurological Assessment Last Done: 04/23/25 13:20
ED- Cardiac Assessment Last Done: 04/23/25 13:20
Discharge Date and Time
Discharge Date/Time: 04/23/25 15:08
Print Language: SRI LANKAN
[2025-04-23] MEDS: ANTIVERT 25 MG PO (13:49)
[2025-04-23 14:00] VITALS: BP 144/82
[2025-04-23 14:28] VITALS: BP 176/96
[2025-04-23 15:03] VITALS: BP 168/65
== END 2025-04-23 15:08 | disposition home or self-care (01) ==
LOC: EMR 11:10
PROVIDERS: Emergency Medicine; EMERGENCY PHYSICIAN Emergency Medicine; FAMILY PHYSICIAN Internal Medicine
DX: G93.9 Disorder of brain, unspecified (principal); R42 Dizziness and giddiness; I48.91 Unspecified atrial fibrillation; I10 Essential (primary) hypertension; F32.A Depression, unspecified; Z79.01 Long term (current) use of anticoagulants; Z79.899 Other long term (current) drug therapy; Z87.11 Personal history of peptic ulcer disease; Z87.891 Personal history of nicotine dependence
CPT/HCPCS: 99284; 70450; 80053; 84443; 84484; 85025; 93005